=== PATIENT | female | born 1990 | race Caucasian/White ===

== ENCOUNTER 2023-01-10 14:59 | Emergency (ER) | payer OTHER ==
[~2023-01-10] VITALS: Ht 157.5 cm; Wt 62.4 kg
[2023-01-10] MEDS ORDERED: KETOROLAC TROMETHAMINE 60 MG/2 ML VIAL IM ONE (15:45)
[2023-01-10] MEDS ORDERED: ACETAMINOPHEN 325 MG TAB PO ONE (15:45)
[2023-01-10] MEDS ORDERED: KETOROLAC TROMETHAMINE 60 MG/2 ML VIAL ONE (16:02)
[2023-01-10] MEDS ORDERED: ACETAMINOPHEN 325 MG TAB ONE (16:02)
[2023-01-10] MEDS ORDERED: KETOROLAC TROME10 MG PO (17:21)
== END 2023-01-10 17:31 | disposition home or self-care (01) ==
LOC: FSED 15:10
DX: M25.552 Pain in left hip (principal); Z87.828 Personal history of other (healed) physical injury and trauma
CPT/HCPCS: 73502; 96372; 99283; J1885